=== PATIENT | male | born 1950 | race Caucasian/White ===

== ENCOUNTER 2017-04-09 14:47 | Emergency (ER) | payer BC, MEDICARE ==
[~2017-04-09] VITALS: Ht 188 cm; Wt 159.1 kg
[~2017-04-09 14:47] MED LIST: ASPIRIN 32325 MG/TA1 PO; BIAXIN 500MG T500 MG PO; BUFFERED ASPIR325 M2 PO; COLACE 100100 MG/CAP PO; COUMADIN 5MG5 MG/TAB PO; FERROUS SU325 MG/TAB PO; LIPITOR 10MG10 MG PO; LOVENOX150 MG/ML SC; NORCO 325 MG-51 TAB PO; PRIL40 PO; PRILOSEC20 M1 PO; ULTRAM 50MG TAB50 MG PO; XARELTO15 MG PO
[2017-04-09 14:51] VITALS: BP 173/84; PULSE 94; TEMP 97.6
[2017-04-09 16:15] LABS: BASO # 0.1 (0.0-0.2); BASO % 0.9 % (0.0-2.0); EOS # 0.4 (0.0-0.7); EOS % 5.2 % (0-4.0); GRAN # 4.3 (1.4-6.5); GRAN % 57.1 % (42.2-75.2); HEMOGLOBIN 13.8 g/dl (13.5-18.0); LYMPH % 26.7 % (20.0-51.0); MEAN CELL VOLUME 85 fl (80.0-100.0); MEAN CORPUSCULAR HEMOGLOBIN 26 pg (27.0-31.0); MEAN CORPUSCULAR HGB CONC 31 g/dl (33.0-37.0); MEAN PLATELET VOLUME 9.9 fl (7.4-10.4); MONO # 0.7 (0.1-0.6); MONO % 9.8 % (1.7-9.3); PLATELET COUNT 297 K/mm3 (130-400); RED BLOOD COUNT 5.32 M/mm3 (4.20-5.60); REDCELL DISTRIBUTION WIDTH-CV 16.6 % (11.5-14.5); WHITE BLOOD COUNT 7.5 K/mm3 (4.8-10.8)
[2017-04-09 16:29] LABS: ADJUSTED CALCIUM 9.2 mg/dL (8.4-10.2); ALANINE AMINOTRANSFERASE 32 U/L (21-72); ALBUMIN 4.1 gm/dL (3.5-5.0); ALKALINE PHOSPHATASE 56 U/L (50-136); ANION GAP 9 mmol/L (7-16); BILIRUBIN,TOTAL 0.6 mg/dL (0.0-1.0); BLOOD UREA NITROGEN 20 mg/dL (9-20); CALCIUM 9.3 mg/dL (8.4-10.2); CARBON DIOXIDE 27 mmol/L (22-30); CHLORIDE 106 mmol/L (98-107); CREATININE, serum 0.91 mg/dL (0.66-1.25); GLUCOSE 89 mg/dL (74-106); POTASSIUM 4.2 mmol/L (3.4-5.0); SODIUM 143 mmol/L (137-145); TOTAL PROTEIN 7.3 gm/dL (6.4-8.2)
[2017-04-09 16:30] LABS: C-REACTIVE PROTEIN < 0.5 mg/dL (0.0-0.9)
[2017-04-09] MEDS ORDERED: DOXYCYCLINE 10100 MG PO (16:46)
== END 2017-04-09 17:03 | disposition home or self-care (01) ==
LOC: COL.ER 14:47
PROVIDERS: Emergency Medicine
DX: M79.89 Other specified soft tissue disorders (principal); I82.5Z2 Chronic embolism and thrombosis of unspecified deep veins of left distal lower extremity; L89.891 Pressure ulcer of other site, stage 1; Z86.718 Personal history of other venous thrombosis and embolism; R60.0 Localized edema

== ENCOUNTER 2017-09-14 09:04 | Inpatient (IN) | payer MEDICARE, BC ==
[~2017-09-14] VITALS: Ht 188 cm; Wt 146.1 kg
[~2017-09-14 09:04] MED LIST changes: +DOXYCYCLINE 10100 MG PO
[2017-09-14] MEDS ORDERED: ASPIRIN 81M81 MG/TA2 PO (09:12)
[2017-09-14] MEDS ORDERED: LIPITOR 40MG TA40 MG PO ×2 (09:12→09:25)
[2017-09-14] MEDS ORDERED: ASPIRIN E.C. 8181 MG PO (09:26)
[2017-09-14 09:45] LABS: HEMATOCRIT 38.6 % (42.0-52.0); HEMOGLOBIN 12.5 g/dl (13.5-18.0); MEAN CELL VOLUME 84 fl (80.0-100.0); MEAN CORPUSCULAR HEMOGLOBIN 27 pg (27.0-31.0); MEAN CORPUSCULAR HGB CONC 32 g/dl (33.0-37.0); MEAN PLATELET VOLUME 9.6 fl (7.4-10.4); PLATELET COUNT 270 K/mm3 (130-400); RED BLOOD COUNT 4.58 M/mm3 (4.20-5.60); REDCELL DISTRIBUTION WIDTH-CV 14.5 % (11.5-14.5)
[2017-09-14 09:56] LABS: CALCIUM 9.3 mg/dL (8.4-10.2); CREATININE, serum 0.72 mg/dL (0.66-1.25); POTASSIUM 3.3 mmol/L (3.4-5.0); TOTAL PROTEIN 6.9 gm/dL (6.4-8.2)
[2017-09-14 10:06] LABS: BAND 18 % (0-10); LYMPHOCYTE 4 % (20.0-51.0); NEUTROPHILS 76 % (42.0-75.2); PLATELET ESTIMATE NORMAL (NORMAL)
[2017-09-14 10:07] LABS: HYPOCHROMIA 1+
[2017-09-14 10:10] LABS: THYROXINE (T4)-TOTAL 6.2 ug/dL (5.5-11.0)
[2017-09-14 10:11] LABS: C-REACTIVE PROTEIN 12.7 mg/dL (0.0-0.9)
[2017-09-14 11:24] LABS: COLLECTION METHOD CLEAN CATCH
[2017-09-14 11:32] LABS: MUCOUS Present /lpf; PH 6 (5-8); SQUAMOUS EPITHELIAL None Seen /hpf; URINE APPEARANCE Clear; URINE BACTERIA None Seen /hpf; URINE BILIRUBIN Negative (NEGATIVE); URINE BLOOD Negative (NEGATIVE); URINE COLOR Yellow; URINE GLUCOSE Negative (NEGATIVE); URINE KETONE Trace (NEGATIVE); URINE LEUKOCYTE ESTERASE Negative (NEGATIVE); URINE NITRATE Negative (NEGATIVE); URINE PROTEIN(semi-quant) 1+ (NEGATIVE); URINE RBC 0-2 /hpf; URINE UROBILINOGEN >=4.0 mg/dL (NEGATIVE)
[2017-09-14 13:22] VITALS: BP 121/74; PULSE 73; TEMP 98.2
[2017-09-14 15:33] VITALS: BP 118/71; PULSE 65; TEMP 99
[2017-09-14 21:05] VITALS: BP 149/82; PULSE 74; TEMP 98.4
[2017-09-15] VITALS (7 sets, daily range): BP systolic 126–150; BP diastolic 74–89; PULSE 65–96; TEMP 97.9–99.1
[2017-09-15 06:34] LABS: MEAN CELL VOLUME 86 fl (80.0-100.0); MEAN CORPUSCULAR HGB CONC 32 g/dl (33.0-37.0); MEAN PLATELET VOLUME 10.1 fl (7.4-10.4); PLATELET COUNT 249 K/mm3 (130-400); RED BLOOD COUNT 4.01 M/mm3 (4.20-5.60); REDCELL DISTRIBUTION WIDTH-CV 14.6 % (11.5-14.5)
[2017-09-15 06:37] LABS: HEMATOCRIT 34.3 % (42.0-52.0); HEMOGLOBIN 10.9 g/dl (13.5-18.0); MEAN CORPUSCULAR HEMOGLOBIN 27 pg (27.0-31.0)
[2017-09-15 06:47] LABS: CALCIUM 8.6 mg/dL (8.4-10.2); CREATININE, serum 0.63 mg/dL (0.66-1.25); POTASSIUM 3.3 mmol/L (3.4-5.0)
[2017-09-15 07:46] LABS: BAND 7 % (0-10); LYMPHOCYTE 11 % (20.0-51.0); METAMYELOCYTE 1 % (0-0); NEUTROPHILS 76 % (42.0-75.2)
[2017-09-15 07:47] LABS: ANISOCYTOSIS 1+; HYPOCHROMIA 2+; POIKILOCYTOSIS 1+
[2017-09-15 07:50] LABS: PLATELET ESTIMATE NORMAL (NORMAL)
[2017-09-16 03:20] VITALS: BP 136/80; PULSE 72; TEMP 98.4
[2017-09-16 06:30] LABS: BASO % 0.6 % (0.0-2.0); EOS # 0.2 (0.0-0.7); EOS % 2.8 % (0-4.0); GRAN # 4.5 (1.4-6.5); GRAN % 66.5 % (42.2-75.2); LYMPH # 1.1 (1.2-3.4); LYMPH % 16.7 % (20.0-51.0); MEAN CELL VOLUME 86 fl (80.0-100.0); MEAN CORPUSCULAR HGB CONC 32 g/dl (33.0-37.0); MEAN PLATELET VOLUME 10.3 fl (7.4-10.4); MONO # 0.9 (0.1-0.6); MONO % 13.1 % (1.7-9.3); PLATELET COUNT 242 K/mm3 (130-400); RED BLOOD COUNT 4.13 M/mm3 (4.20-5.60); REDCELL DISTRIBUTION WIDTH-CV 14.5 % (11.5-14.5)
[2017-09-16 06:32] LABS: HEMATOCRIT 35.4 % (42.0-52.0); HEMOGLOBIN 11.3 g/dl (13.5-18.0); MEAN CORPUSCULAR HEMOGLOBIN 27 pg (27.0-31.0)
[2017-09-16 06:41] LABS: CALCIUM 8.7 mg/dL (8.4-10.2); CREATININE, serum 0.61 mg/dL (0.66-1.25); POTASSIUM 3.1 mmol/L (3.4-5.0)
[2017-09-16 07:15] VITALS: BP 150/88; PULSE 67; TEMP 98.4
[2017-09-16 11:24] VITALS: BP 147/90; PULSE 78; TEMP 98.8
[2017-09-16 16:33] VITALS: BP 155/88; PULSE 75; TEMP 97.8
[2017-09-16 20:18] VITALS: BP 156/88; PULSE 72; TEMP 97.6
[2017-09-16 23:31] VITALS: BP 148/90; PULSE 73; TEMP 99.4
[2017-09-17] VITALS (7 sets, daily range): BP systolic 142–158; BP diastolic 77–97; PULSE 62–69; TEMP 97.4–98.6
[2017-09-17 08:15] LABS: BASO # 0.1 (0.0-0.2); BASO % 0.9 % (0.0-2.0); EOS # 0.4 (0.0-0.7); GRAN # 3.8 (1.4-6.5); GRAN % 57.8 % (42.2-75.2); HEMATOCRIT 39.6 % (42.0-52.0); HEMOGLOBIN 12.6 g/dl (13.5-18.0); LYMPH # 1.6 (1.2-3.4); LYMPH % 23.8 % (20.0-51.0); MEAN CELL VOLUME 86 fl (80.0-100.0); MEAN CORPUSCULAR HEMOGLOBIN 27 pg (27.0-31.0); MEAN CORPUSCULAR HGB CONC 32 g/dl (33.0-37.0); MONO # 0.7 (0.1-0.6); MONO % 11.2 % (1.7-9.3); PLATELET COUNT 291 K/mm3 (130-400); RED BLOOD COUNT 4.62 M/mm3 (4.20-5.60); REDCELL DISTRIBUTION WIDTH-CV 14.5 % (11.5-14.5)
[2017-09-17 08:26] LABS: CALCIUM 9.4 mg/dL (8.4-10.2); CREATININE, serum 0.62 mg/dL (0.66-1.25); POTASSIUM 3.5 mmol/L (3.4-5.0)
[2017-09-18 03:27] VITALS: BP 149/87; PULSE 59; TEMP 97.6
[2017-09-18 07:09] LABS: CREATININE, serum 0.62 mg/dL (0.66-1.25); POTASSIUM 3.9 mmol/L (3.4-5.0)
[2017-09-18 07:43] VITALS: BP 152/89; PULSE 54; TEMP 97.9
[2017-09-18] MEDS ORDERED: DOXYCYCLINE 10100 MG PO (09:35)
== END 2017-09-18 10:37 | disposition home or self-care (01) | DRG 603 ==
LOC: COL.ER 09:04 → MEDICAL 12:45
PROVIDERS: Emergency Medicine; Family Medicine; Internal Medicine; Physician Assistant
DX: L03.116 Cellulitis of left lower limb (principal); E87.1 Hypo-osmolality and hyponatremia; I82.512 Chronic embolism and thrombosis of left femoral vein; I82.532 Chronic embolism and thrombosis of left popliteal vein; Z66 Do not resuscitate; E87.6 Hypokalemia; I87.2 Venous insufficiency (chronic) (peripheral); I73.9 Peripheral vascular disease, unspecified; Z95.820 Peripheral vascular angioplasty status with implants and grafts; Z86.711 Personal history of pulmonary embolism; B95.61 Methicillin susceptible Staphylococcus aureus infection as the cause of diseases classified elsewhere; R73.9 Hyperglycemia, unspecified
CPT/HCPCS: 99222-AI; 99232-AI; 99239; J1650; J2405; J2543; J3370; J7030; J7040; J7050

== ENCOUNTER 2018-09-18 13:57 | Emergency (ER) | payer MEDICARE, BC ==
[~2018-09-18] VITALS: Ht 157.5 cm; Wt 150.9 kg
[~2018-09-18 13:57] MED LIST changes: +ASPIRIN 81M81 MG/TA2 PO; +ASPIRIN E.C. 8181 MG PO; +LIPITOR 40MG TA40 MG PO
[2018-09-18 14:02] VITALS: TEMP 98.6
[2018-09-18] MEDS ORDERED: PRILOTC (14:20)
[2018-09-18 14:49] LABS: BASO % 0.2 % (0.0-2.0); GRAN # 10.5 (1.4-6.5); GRAN % 90.2 % (42.2-75.2); HEMOGLOBIN 14.6 g/dl (13.5-18.0); LYMPH # 0.3 (1.2-3.4); LYMPH % 2.3 % (20.0-51.0); MEAN CELL VOLUME 84 fl (80.0-100.0); MEAN CORPUSCULAR HEMOGLOBIN 26 pg (27.0-31.0); MEAN CORPUSCULAR HGB CONC 30 g/dl (33.0-37.0); MONO # 0.8 (0.1-0.6); PLATELET COUNT 297 K/mm3 (130-400); REDCELL DISTRIBUTION WIDTH-CV 14.6 % (11.5-14.5)
[2018-09-18 14:51] LABS: ALBUMIN 4.4 gm/dL (3.5-5.0); BILIRUBIN,TOTAL 1.4 mg/dL (0.0-1.0); CALCIUM 9.6 mg/dL (8.4-10.2); CREATININE, serum 0.82 mg/dL (0.66-1.25); POTASSIUM 4.4 mmol/L (3.4-5.0); TOTAL PROTEIN 7.7 gm/dL (6.4-8.2)
[2018-09-18 16:54] VITALS: BP 108/77; PULSE 93
== END 2018-09-18 17:51 | disposition home or self-care (01) ==
LOC: COL.ER 13:57
PROVIDERS: Emergency Medicine
DX: R19.7 Diarrhea, unspecified (principal); Z98.890 Other specified postprocedural states
CPT/HCPCS: J2405; J7030

== ENCOUNTER 2020-01-28 08:17 | Emergency (ER) | payer MEDICARE, BC ==
[~2020-01-28] VITALS: Ht 188 cm; Wt 154.1 kg
[~2020-01-28 08:17] MED LIST changes: +PRILOTC
[2020-01-28 08:29] VITALS: TEMP 97.8
[2020-01-28] MEDS ORDERED: NEURONTIN300 MG/CAP PO (08:42)
[2020-01-28 09:14] LABS: BASO # 0.1 (0.0-0.2); BASO % 0.4 % (0.0-2.0); EOS % 0.2 % (0-4.0); GRAN # 10.3 (1.4-6.5); GRAN % 84.3 % (42.2-75.2); HEMATOCRIT 44.8 % (42.0-52.0); HEMOGLOBIN 13.8 g/dl (13.5-18.0); LYMPH # 0.7 (1.2-3.4); LYMPH % 5.4 % (20.0-51.0); MEAN CELL VOLUME 86 fl (80.0-100.0); MEAN CORPUSCULAR HEMOGLOBIN 27 pg (27.0-31.0); MEAN CORPUSCULAR HGB CONC 31 g/dl (33.0-37.0); MEAN PLATELET VOLUME 9.5 fl (7.4-10.4); MONO # 1.1 (0.1-0.6); MONO % 9.1 % (1.7-9.3); PLATELET COUNT 162 K/mm3 (130-400); RED BLOOD COUNT 5.19 M/mm3 (4.20-5.60); REDCELL DISTRIBUTION WIDTH-CV 14.8 % (11.5-14.5)
[2020-01-28 09:33] LABS: ALBUMIN 4.8 gm/dL (3.5-5.0); BILIRUBIN,TOTAL 1.2 mg/dL (0.0-1.0); C-REACTIVE PROTEIN 1.3 mg/dL (0.0-0.9); CREATININE, serum 1.12 (0.66-1.25); TOTAL PROTEIN 8.3 gm/dL (6.4-8.2)
[2020-01-28 09:43] LABS: ARTERIAL BLD GAS O2 SATURATION 98.1 % (92-100); ARTERIAL BLD GAS TCO2 CT 20.3; ARTERIAL BLOOD GAS BASE EXCESS -4.2 (-2-2); ARTERIAL BLOOD GAS HCO3 19.4 meq/L (22-26); ARTERIAL BLOOD GAS PCO2 31.6 mmHg (35-45); ARTERIAL BLOOD GAS PO2 103.2 mmHg (80-100); ARTERIAL BLOOD GAS pH 7.41 (7.35-7.45)
[2020-01-28 10:36] LABS: INR 1.3 (0.8-3.0); PROTHROMBIN TIME 14.8 SECONDS (9.7-12.8)
[2020-01-28 10:39] LABS: PARTIAL THROMBOPLASTIN TIME 33.7 SECONDS (26.0-37.0)
[2020-01-28 14:18] VITALS: BP 110/91; PULSE 103
== END 2020-01-28 14:30 | disposition short-term general hospital (02) ==
LOC: COL.ER 08:17
PROVIDERS: Physician Assistant
DX: I26.99 Other pulmonary embolism without acute cor pulmonale (principal); E78.5 Hyperlipidemia, unspecified; K21.9 Gastro-esophageal reflux disease without esophagitis; Z86.718 Personal history of other venous thrombosis and embolism; Z90.89 Acquired absence of other organs; Z79.82 Long term (current) use of aspirin
CPT/HCPCS: J1644; J7030; Q9967